=== PATIENT | female | born 1980 | race Two or more races ===

== ENCOUNTER → 2019-09-24 | Outpatient (REF) | payer OTHER ==
[2019-09-24 20:35] LABS: BLOOD UREA NITROGEN 18 MG/DL (7-18); CREATININE FOR GFR 0.85 MG/DL (0.55-1.30); GLUCOSE, FASTING 109 MG/DL (70-100)
[2019-09-24 20:36] LABS: ALBUMIN 3.5 GM/DL (3.2-5.2); ALT/SGPT 20 U/L (12-78); BILIRUBIN,TOTAL 0.8 MG/DL (0.2-1.0); C REACTIVE PROTEIN QUANTITATIV < 0.30 MG/DL (0.00-0.30); CALCIUM LEVEL 8.5 MG/DL (8.5-10.1); CARBON DIOXIDE LEVEL 28 MEQ/L (21-32); CHLORIDE LEVEL 112 MEQ/L (98-107); GLOMERULAR FILTRATION RATE > 60.0 (>60); RHEUMATOID FACTOR QUANT < 10.0 IU/ML (<15.0); SODIUM LEVEL 142 MEQ/L (136-145)
[2019-09-24 20:38] LABS: HEMOGLOBIN A1c 5.2 %
[2019-09-24 20:45] LABS: TOTAL 25(OH) VITAMIN D 19.9 NG/ML (30.0-100.0)
[2019-09-28 00:07] LABS: ANA (HEP2) Negative (.)
== END ==
LOC: M SFHCLERA 15:07
PROVIDERS: ATTEND Nurse Practitioner Family
DX: M79.89 Other specified soft tissue disorders (principal); R53.82 Chronic fatigue, unspecified; R20.2 Paresthesia of skin
CPT/HCPCS: 80053; 82306; 83036; 85652; 86038; 86140; 86431; G0463